=== PATIENT | female | born 1985 | race Two or more races ===

== ENCOUNTER 2017-02-07 02:29 | Emergency (ER) | payer OTHER ==
[~2017-02-07] VITALS: Ht 144.8 cm; Wt 61.2 kg
--- NOTE | 2017-02-07 03:15 | NUR ---
PT BIB [facility] WITH A C/O 33 WKS . PT STATED THAT SHE IS NOT FEELING WELL AND THAT THE BABY HAS NOT MOVED MUCH. PT AMBULATED TO BED #18.
--- NOTE | 2017-02-07 03:18 | NUR ---
20G IV STARTED IN LFA. BLOOD WAS DRAWN AND SENT TO LAB. PT STATED THAT SHE WAS UNABLE TO GIVE A URINE SAMPLE.
--- NOTE | 2017-02-07 03:20 | NUR ---
US AT THE BEDSIDE.
[2017-02-07] MEDS ORDERED: IV NS 0.9% 1,000 ML BAG IV ONE (03:30)
[2017-02-07 03:50] LABS: HEMATOCRIT 37 % (33-45); HEMOGLOBIN 12.5 g/dL (11.5-14.8); LYMPHOCYTES # (AUTO) 0.9 /CMM (0.8-4.8); LYMPHOCYTES % (AUTO) 7.6 % (20.0-44.0); MEAN CORPUSCULAR HEMOGLOBIN 29 PG (26.0-33.0); MEAN CORPUSCULAR HGB CONC 33 g/dl (31.0-36.0); MEAN CORPUSCULAR VOLUME 86 fL (82-100); MONOCYTES % (AUTO) 8.8 % (2.0-12.0); NEUTROPHILS # (AUTO) 9.4 /CMM (1.8-8.9); NEUTROPHILS % (AUTO) 83.6 % (43.0-81.0); PLATELET COUNT (AUTO) 172 /CMM (150-450); RED BLOOD CELL COUNT(AUTO) 4.37 MIL/uL (4.0-5.2); WHITE BLOOD COUNT (AUTO) 11.3 K/uL (4.3-11.0)
[2017-02-07 03:58] LABS: ALBUMIN 2.1 g/dL (3.4-5.0); BILIRUBIN,DIRECT 0.1 mg/dL (0.0-0.2); BILIRUBIN,TOTAL 0.4 mg/dL (0.2-1.0); CALCIUM, SERUM 8.2 mg/dL (8.5-10.1); CREATININE 0.5 mg/dL (0.6-1.3); POTASSIUM 3.6 mmol/L (3.5-5.1); TOTAL PROTEIN, SERUM 6.4 g/dL (6.4-8.2)
[2017-02-07 04:09] LABS: APPEARANCE,URINE SL CLOUDY (CLEAR); BILIRUBIN,URINE NEGATIVE (NEGATIVE); BLOOD, URINE NEGATIVE Ery/uL (NEGATIVE); COLOR,URINE YELLOW (YELLOW); KETONES,URINE NEGATIVE (NEGATIVE); LEUKOCYTE ESTERASE ,URINE NEGATIVE (NEGATIVE); NITRITE, URINE NEGATIVE (NEGATIVE); PH,URINE 6.5 (5.0-8.0); PROTEIN,URINE NEGATIVE (NEGATIVE); UGLUCOSE NEGATIVE (NEGATIVE); UROBILINOGEN,URINE 0.2 EU/dL (0.2)
--- NOTE | 2017-02-07 04:09 | NUR ---
PT APPEARS TO BE RESTING COMFORTABLY. PT IS ON THE MONITOR AND CONTINUOUS PULSE OX. RESP EVEN AND UNLABORED.
--- NOTE | 2017-02-07 04:37 | NUR ---
CALLING [facility], TIM HOWELL. NURSING MOLD PULLER TRANFERED THE CALL TO Isacc VILLALOBOS RN/ENRIQUE. NO BEDS AVAILABLE. TRANSFERED BACK TO NURSING SUP WHO STATED THAT THE PT SHOULD BE ADMITTED TO [facility] AND THEY DO NOT HAVE ANY BEDS.
--- NOTE | 2017-02-07 04:42 | NUR ---
PT'S OB IS MARCOS ATKINSON AT [facility]
--- NOTE | 2017-02-07 04:49 | NUR ---
CHILO, RN/CHG CALLED [facility] AND SPOKE TO NURSING ELECTRONIC OPERATOR. CHILO GOT THE NUMBER FOR DR. TREVA ATKINSON, OBGYN .
--- NOTE | 2017-02-07 04:57 | NUR ---
KEN MCCLENDON IS IN [place]. OFFICE NUBMER IS [phone]. AFTER HOURS NUMBER: [phone]
[2017-02-07] MEDS ORDERED: OSELTAMIVIR PHOSPHATE 75 MG CAPSULE ONE (04:59)
[2017-02-07] MEDS ORDERED: LABETALOL HCL (100MG) 100 MG TABLET ONE (04:59)
--- NOTE | 2017-02-07 04:59 | NUR ---
CALLING DR. ATKINSON . LEFT A VOICE MESSAGE.
[2017-02-07] MEDS ORDERED: LABETALOL HCL (100MG) 100 MG TABLET PO ONE (05:00)
[2017-02-07] MEDS ORDERED: OSELTAMIVIR PHOSPHATE 75 MG CAPSULE PO ONE (05:00)
[2017-02-07] MEDS ORDERED: ACETAMINOPHEN 325 MG TABLET ONE (05:40)
[2017-02-07] MEDS ORDERED: IV D5/0.45 NACL 1,000 ML IV ONE (05:48)
--- NOTE | 2017-02-07 05:52 | NUR ---
CHILO RN/CHG CALLED [facility]: TRANSFER. PT ACCEPTED AT [facility] BY DR. KNOX. PT IS GOING TO OB TRIAGE 3B. CALL [phone] FOR REPORT. MAC NUMBER IS [id number]
--- NOTE | 2017-02-07 05:57 | NUR ---
CALLING REPORT TO VALERIA MELENDREZ RN AT [facility].
--- NOTE | 2017-02-07 05:57 | NUR ---
CALLED [facility] FOR TRANSPORT ETA 2 HOURS AT 0800
[2017-02-07] MEDS ORDERED: ACETAMINOPHEN 325 MG TABLET PO ONE (06:00)
--- NOTE | 2017-02-07 07:28 | NUR ---
REPORT GIVEN TO TIM TILLEY FOR [facility].
[2017-02-07 08:37] VITALS: BP 110/68
--- NOTE | 2017-02-07 08:47 | NUR ---
REPORT GIVEN TO [facility] TRANSPORT
== END 2017-02-07 08:48 | disposition short-term general hospital (02) ==
LOC: ER 02:36
DX: O99.513 Diseases of the respiratory system complicating pregnancy, third trimester (principal); J10.1 Influenza due to other identified influenza virus with other respiratory manifestations; O16.3 Unspecified maternal hypertension, third trimester; Z3A.33 33 weeks gestation of pregnancy
CPT/HCPCS: 36415; 76805; 80048; 80076; 81001; 82962; 85025; 87804; 96361; 96365; 99285; A4606; J7030; Z7610; 81000-TC; 87400